=== PATIENT | male | born 1970 | race Caucasian/White ===

== ENCOUNTER → 2018-10-20 13:27 | Outpatient (CLI) | payer OTHER, SELFPAY | PROVIDERS: PCP Internal Medicine; Visit Provider Family Medicine | DX: S41.001A Unspecified open wound of right shoulder, initial encounter (principal); E11.622 Type 2 diabetes mellitus with other skin ulcer | CPT/HCPCS: 11042; 99203; 99213 ==

== ENCOUNTER → 2018-10-28 08:54 | Outpatient (CLI) | payer OTHER, SELFPAY | PROVIDERS: PCP Internal Medicine; Visit Provider Family Medicine | DX: S41.001A Unspecified open wound of right shoulder, initial encounter (principal); E11.622 Type 2 diabetes mellitus with other skin ulcer | CPT/HCPCS: 99212; 99213 ==

== ENCOUNTER → 2018-11-04 08:44 | Outpatient (CLI) | payer OTHER, SELFPAY | PROVIDERS: PCP Internal Medicine; Visit Provider Family Medicine | DX: S41.002A Unspecified open wound of left shoulder, initial encounter (principal); E11.622 Type 2 diabetes mellitus with other skin ulcer | CPT/HCPCS: 99212; 99213 ==

== ENCOUNTER → 2018-11-11 08:40 | Outpatient (CLI) | payer OTHER, SELFPAY | PROVIDERS: PCP Internal Medicine; Visit Provider Family Medicine | DX: E11.622 Type 2 diabetes mellitus with other skin ulcer (principal); E11.649 Type 2 diabetes mellitus with hypoglycemia without coma; S41.001D Unspecified open wound of right shoulder, subsequent encounter | CPT/HCPCS: 99212 ==

== ENCOUNTER 2023-06-12 16:00 | Emergency (ER) | payer OTHER, SELFPAY ==
[2023-06-12 16:05] VITALS: BP 158/78; PULSE 79; RESP 18; TEMP 36.2; O2SAT 100; BMI 29.5
--- NOTE | 2023-06-12 16:44 | DI.US.S_ITS ---
PROCEDURE: US PERIPH VENOUS LOW EXTREM LT INDICATIONS: L leg swelling TECHNIQUE: Real-time imaging, as well as color and pulse Doppler interrogation, were performed of the lower extremity deep veins from the inguinal ligament to the popliteal fossa, with documentation of the visualized calf veins. COMPARISON: None. FINDINGS: The common femoral, femoral, popliteal, and the visualized calf veins are normally compressible, and free of intraluminal thrombus. Color and pulse Doppler demonstrate normal phasic intraluminal flow. There is normal augmentation response to distal compression maneuver. Additionally, there is a large soft tissue fluid collection in the left mid calf measuring 11.2 x 4.4 x 1.6 cm. IMPRESSION: No evidence of deep venous thrombosis, left lower extremity. Complex calf soft tissue fluid collection possibly reflects resolving hematoma Approved by: Ryan Galloway M.D. on 06/12/2023 at 17:26
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
[2023-06-12 18:42] VITALS: BP 138/70; PULSE 71; TEMP 36.8; O2SAT 99
== END 2023-06-12 18:45 | disposition home or self-care (01) ==
PROVIDERS: Emergency Provider Student in an Organized Health Care Education/Training Program; PCP Internal Medicine
DX: M79.89 Other specified soft tissue disorders (principal); S80.12XA Contusion of left lower leg, initial encounter
CPT/HCPCS: 93971; 99281; 99283

== ENCOUNTER 2023-10-01 17:59 | Emergency (ER) | payer OTHER, SELFPAY ==
[2023-10-01 18:08] VITALS: BP 201/99; PULSE 81; RESP 14; TEMP 36.5; O2SAT 98; BMI 29.1
--- NOTE | 2023-10-01 20:12 | ED.LOWEXIN ---
HPI - Extremity Injury (Lower) General Chief Complaint: Extremity Injury, Lower Stated Complaint: foot injury Time Seen by Provider: 10/01/23 19:52 Source: patient Mode of arrival: Ambulatory History of Present Illness HPI Narrative: 53-year-old male with history of insulin-dependent diabetes presents for evaluation of wound to his left 4th and 5th toes. Patient states that yesterday he noticed a blister after working and attributed it to his footwear. This evening after using the restroom he looked down at his feet and noticed that the skin of his toes had completely degloved, leaving the toes bare. He presented to the ER for evaluation. Reports neuropathy in both his feet and has some sensation, but decreased from normal Related Data Previous Rx's Medication Instructions Recorded cephalexin 500 mg capsule 500 mg PO QID #40 caps 10/01/23 doxycycline hyclate 100 mg capsule 100 mg PO BID #20 caps 10/01/23 Allergies Allergy/AdvReac Type Severity Reaction Status Date / Time No Known Drug Allergies Allergy Verified 06/12/23 16:05 Patient History Social History Smoking Status: Never smoker Smoking Status: Never smoker alcohol intake frequency: holidays/special occasions only Substance Use Type: does not use Exam Initial Vital Signs Initial Vital Signs: Vital Signs Temperature 97.7 F 10/01/23 18:08 Pulse Rate 81 10/01/23 18:08 Respiratory Rate 14 10/01/23 18:08 Blood Pressure 201/99 H 10/01/23 18:08 Pulse Oximetry 98 10/01/23 18:08 Oxygen Delivery Method Room Air 10/01/23 18:08 Const: Awake, alert, no acute distress, nontoxic appearing Skin: Skin of 4th and 5th toes degloved from base of digit to tip of digit, no surrounding cellulitis or erythema Neuro: AO x3, CN II-XII grossly intact, moves all extremities Course Orders Ordered: ED Orders 10/01/23 20:12 XR toe LT min 2V Stat Discontinued Medications Cephalexin HCl (Cephalexin 250 Mg Capsule) 1,000 mg PO NOW ONE Stop: 10/01/23 22:20 Last Admin: 10/01/23 22:30 Dose: 1,000 mg Documented By: Doxycycline Hyclate (Doxycycline Hyclate 100 Mg Tablet) 100 mg PO NOW ONE Stop: 10/01/23 22:18 Last Admin: 10/01/23 22:30 Dose: 100 mg Documented By: Hydromorphone HCl (Hydromorphone 1 Mg Inj) 1 mg IV NOW ONE Stop: 10/01/23 20:30 Last Admin: 10/01/23 20:35 Dose: Not Given Documented By: Vital Signs Vital signs: Vital Signs - 8 hr 10/01/23 22:34 Temperature 99.1 F Pulse Rate 85 Respiratory Rate 16 Blood Pressure 135/87 Pulse Oximetry 95 Oxygen Delivery Method Room Air MDM - Extremity Injury (Lower) Imaging Data Extremity x-ray #1: Radiologist's Impression: PROCEDURE: XR TOE LT MIN 2V INDICATIONS: diabetic wound TECHNIQUE: 3 views of the left 4th and 5th toe(s) acquired. COMPARISON: None. FINDINGS: Bones: No definite fractures or dislocations. No suspicious osseous erosions. No suspicious bony lesions. Soft tissues: No suspicious soft tissue densities. There is soft tissue swelling of the distal left 4th and 5th toes more pronounced over the 5th toe. IMPRESSION: Left 4th and 5th toes without definite fracture or osseous erosions. Overlying soft tissue swelling. Although no bony erosions are identified, radiographic evaluation is relatively insensitive in the acute phase of osteomyelitis and may not demonstrate radiographic findings for approximately 15 days. If acute osteomyelitis is of clinical concern, three-phase nuclear medicine regional bone scan or MRI is recommended. Dictated by: Thierry Nash M.D. on 10/01/2023 at 21:23 Approved by: Thierry Nash M.D. on 10/01/2023 at 21:25 [facility] Narrative Medical decision making narrative: Degloving skin of left 4th and 5th toes in patient with diabetes. Area cleansed with Betadine and normal saline, D gloves skin removed from around the toes. Xeroform gauze and dry dressing placed around toes. Since patient was a diabetic with neuropathy plan to treat with antibiotics. In addition a wound care referral was sent so that the patient may have continued wound follow up. X-ray imaging shows soft tissue swelling without gas or other concerning findings. Discharge Plan Departure Patient Disposition: Home Clinical Impression: Diabetic toe ulcer Instructions: DI for Diabetic Foot Ulcer Activity Restrictions/Additional Instructions: Keep your toe clean and dry. Change dressings daily. A referral to wound care has been placed, please await a call to schedule an appointment. Antibiotics have been sent to the [facility] in [place]. Prescriptions: New cephalexin 500 mg capsule 500 mg PO QID Qty: 40 0RF doxycycline hyclate 100 mg capsule 100 mg PO BID Qty: 20 0RF Referrals: ProviderAndrea [Primary Care Provider] - Stand Alone Forms: Patient Portal/API
--- NOTE | 2023-10-01 20:25 | PC.NURSE ---
Pt has degloving of skin to left fourth toe. Pt reports that is started out as a blister from walking.
--- NOTE | 2023-10-01 20:27 | PC.NURSE ---
Left foot soaking in betadine/NS solution per MD request.
[2023-10-01] MEDS: DOXYCYCLINE HYCLATE 100 MG TABLET PO (22:30)
[2023-10-01] MEDS: cephALEXin 250 MG CAPSULE 1000 MG PO (22:30)
[2023-10-01 22:34] VITALS: BP 135/87; PULSE 85; RESP 16; TEMP 37.3; O2SAT 95
== END 2023-10-01 22:36 | disposition home or self-care (01) ==
PROVIDERS: Emergency Provider Emergency Medicine
DX: E10.621 Type 1 diabetes mellitus with foot ulcer (principal); L97.529 Non-pressure chronic ulcer of other part of left foot with unspecified severity
CPT/HCPCS: 73660; 99283

== ENCOUNTER 2023-10-04 15:46 | Inpatient (IN) | payer OTHER, SELFPAY ==
[2023-10-04] VITALS (12 sets, daily range): BP systolic 171–207; BP diastolic 76–93; PULSE 72–78; RESP 16–17; TEMP 36.6–37.7; O2SAT 95–99; BMI 29.1
--- NOTE | 2023-10-04 15:57 | ED.LOWEXIN ---
HPI - Extremity Injury (Lower) General Chief Complaint: Wound/Laceration Stated Complaint: lt foot/toes black Time Seen by Provider: 10/04/23 15:50 History of Present Illness HPI Narrative: 53-year-old male with history of hypertension, insulin-dependent diabetes presents for blackening of his left 4th and 5th toes. I saw patient on 10/01/2023 for blistering on his toes. At that time patient had blisters on his toes that suddenly popped and desquamated. At that time x-ray imaging was negative for acute findings, his wounds were cleansed and wrapped in clean dressings. Patient was discharged on Keflex and doxycycline. Patient states that he has been compliant with his medications as prescribed. This afternoon when he and his went to go change his dressings he noticed that his toes were black. He has neuropathy in his feet and denies any significant pain. Related Data Previous Rx's Medication Instructions Recorded cephalexin 500 mg capsule 500 mg PO QID #40 caps 10/01/23 doxycycline hyclate 100 mg capsule 100 mg PO BID #20 caps 10/01/23 Allergies Allergy/AdvReac Type Severity Reaction Status Date / Time meperidine [From Demerol] Allergy Verified 10/04/23 16:04 Review of Systems Review of Systems Narrative: See HPI Patient History Social History Smoking Status: Never smoker Smoking Status: Never smoker alcohol intake frequency: holidays/special occasions only Substance Use Type: does not use Exam Initial Vital Signs Initial Vital Signs: Vital Signs Temperature 98 F 10/04/23 15:56 Pulse Rate 72 10/04/23 15:56 Respiratory Rate 17 10/04/23 15:56 Blood Pressure 177/79 H 10/04/23 15:56 Pulse Oximetry 98 10/04/23 15:56 Oxygen Delivery Method Room Air 10/04/23 15:56 Const: Awake, alert, no acute distress, nontoxic appearing Cardiac: regular rate, regular rhythm RESP: unlabored, clear bilaterally, no wheezing MSK: Strong DP pulses bilaterally, decreased sensation bilateral feet Skin: Blackened 4th and 5th toes (dry, no eschar, no foul odor), erythema 2nd and 3rd toes, warmth top of left foot to ankle Neuro: AO x3, CN II-XII grossly intact, moves all extremities Course Orders Ordered: ED Orders 10/04/23 16:01 XR foot LT min 3V Stat 10/04/23 16:26 CBC Auto Diff [Complete Blood Count AUTO DIFF] Stat CMP [Comprehensive Metabolic Panel] Stat Procalcitonin Stat Vancomycin HCl/Dextrose (Vancomycin) 2,000 mg in 400 mls @ 200 mls/hr IV NOW ONE Stop: 10/04/23 17:58 Last Admin: 10/04/23 17:35 Dose: 200 mls/hr Documented By: KELLY Discontinued Medications Cefepime HCl 2 gm/ Sodium (Chloride) 100 mls @ 200 mls/hr IV NOW ONE Stop: 10/04/23 15:59 Last Infusion: 10/04/23 17:33 Dose: Infused Documented By: Admin: 10/04/23 16:56 Dose: 200 mls/hr Documented By: KELLY Vital Signs Vital signs: Vital Signs - 8 hr 10/04/23 15:56 Temperature 98 F Pulse Rate 72 Respiratory Rate 17 Blood Pressure 177/79 H Pulse Oximetry 98 Oxygen Delivery Method Room Air MDM - Extremity Injury (Lower) Differential Diagnosis Differential diagnosis: Likely ankle sprain and strain, puncture wound of foot and fracture of toe Lab Data 10/04/23 16:26 10/04/23 16:26 Labs: Lab Results 10/04/23 Range/Units 16:26 WBC 7.2 (4.5-11.0) X10^3/uL RBC 4.31 L (4.5-5.9) X10^6/uL Hgb 12.3 L (13.5-17.5) g/dL Hct 35.8 L (41-53) % MCV 83.0 (80-100) fL MCH 28.6 (26-34) PG MCHC 34.4 (30-36) % RDW 13.5 (11.6-14.8) % Plt Count 228 (150-400) X10^3/uL Neut % (Auto) 77.3 H (50-75) % Lymph % (Auto) 15.5 L (25-40) % [place] % (Auto) 5.2 (3-14) % Eos % (Auto) 1.5 L (2-4) % Baso % (Auto) 0.5 (0-2) % Neut # (Auto) 5600 (3853-3545) /uL Lymph # (Auto) 1100 (1093-2916) /uL [place] # (Auto) 400 (0-900) /uL Eos # (Auto) 100 (0-450) /uL Baso # (Auto) 0 (0-100) /uL Sodium 135 L (137-145) mmol/L Potassium 4.7 (3.4-5.1) mmol/L Chloride 102 (98-107) mmol/L Carbon Dioxide 27 (22-32) mmol/L BUN 42 H (9-20) mg/dL Creatinine 1.57 H (0.66-1.25) mg/dL Estimated GFR 53 L (>60) mL/min BUN/Creatinine Ratio 26.8 H (6-22) Glucose 448 H (70-100) mg/dL Calcium 8.8 (8.4-10.2) mg/dL Total Bilirubin 0.6 (0.2-1.3) mg/dL AST 21 (17-59) IU/L ALT 20 (<50) IU/L Alkaline Phosphatase 126 (38-126) U/L Total Protein 7.6 (6.3-8.2) g/dL Albumin 4.2 (3.5-5.0) g/dL Globulin 3.4 (1.7-4.1) g/dL Albumin/Globulin Ratio 1.2 (1.0-2.8) Procalcitonin 0.087 (<0.5) ng/mL Imaging Data Extremity x-ray #1: Radiologist's Impression: PROCEDURE: XR FOOT LT MIN 3V INDICATIONS: black 4th and 5th toes TECHNIQUE: 3 views of the foot were acquired. COMPARISON: None. FINDINGS: Bones: No fractures or dislocations. No suspicious bony lesions. No cortical erosions or periosteal reaction. Soft tissues: No tibiotalar joint effusion. Achilles tendon appears normal. IMPRESSION: No acute radiographic abnormality. Approved by: Heather Patel M.D.,Ph.D. on 10/04/2023 at 15:56 MDM Narrative Medical decision making narrative: Rapid worsening of 4th and 5th toes compared to initial presentation on 09/30. Appearances of dry gangrene with blackened, deadened skin. Patient has strong dorsalis pedis pulses and capillary refill is less than 2 seconds in non necrotic toes. Laboratory work, repeat x-rays, IV antibiotics ordered. Laboratory work is reviewed, no leukocytosis, normal procalcitonin. X-ray showed no changes from prior. Patient is receiving vancomycin and cefepime for coverage. Today labs show glucose of 448, patient states his blood glucose is normally much better controlled than that, although his most recent A1c was 9. Picture shared with Dr. Bo of orthopedics, who stated that patient could follow in clinic to discuss removal of the necrotic toes, however if patient needed to stay in the hospital he would see him on an inpatient basis. Based on the rapid spread of the necrosis as well as apparent failure of antibiotic treatment I believe patient would be best kept in the hospital at this time. Patient and in agreement with plan. Discharge Plan Departure Patient Disposition: Admitted As Inpatient Clinical Impression: Hyperglycemia, Gangrene associated with diabetes mellitus Diabetic toe ulcer Qualifiers: Diabetes mellitus type: type 2 Laterality: left Non-pressure ulcer stage: with other severity Qualified Code(s): E11.621 - Type 2 diabetes mellitus with foot ulcer; L97.528 - Non-pressure chronic ulcer of other part of left foot with other specified severity Admit Date/Time: 10/04/23 17:33 Admit Provider: Duncan Tan V
--- NOTE | 2023-10-04 16:01 | DI.RAD.S_ITS ---
PROCEDURE: XR FOOT LT MIN 3V INDICATIONS: black 4th and 5th toes TECHNIQUE: 3 views of the foot were acquired. COMPARISON: None. FINDINGS: Bones: No fractures or dislocations. No suspicious bony lesions. No cortical erosions or periosteal reaction. Soft tissues: No tibiotalar joint effusion. Achilles tendon appears normal. IMPRESSION: No acute radiographic abnormality. Approved by: Heather Patel M.D.,Ph.D. on 10/04/2023 at 15:56
[2023-10-04 16:38] LABS: Add Manual Diff / Slide Review NO; Basophils Absolute Auto 0 /uL (0-100); Basophils Percent Auto 0.5 % (0-2); Eosinophils Absolute Auto 100 /uL (0-450); Eosinophils Percent Auto 1.5 % (2-4); Hematocrit 35.8 % (41-53); Hemoglobin 12.3 g/dL (13.5-17.5); Lymphocytes Absolute Auto 1100 /uL (1100-4500); Lymphocytes Percent Auto 15.5 % (25-40); Mean Corpuscular HGB Conc 34.4 % (30-36); Mean Corpuscular Hemoglobin 28.6 PG (26-34); Monocytes Absolute Auto 400 /uL (0-900); Monocytes Percent Auto 5.2 % (3-14); Neutrophils Absolute Auto 5600 /uL (1500-7000); Neutrophils Percent Auto 77.3 % (50-75); Platelet Count 228 X10^3/uL (150-400); Red Blood Cell Count 4.31 X10^6/uL (4.5-5.9); Red Cell Distribution Width 13.5 % (11.6-14.8); White Blood Cell Count 7.2 X10^3/uL (4.5-11.0)
[2023-10-04 16:48] LABS: Alanine Aminotransferase 20 IU/L (<50); Albumin 4.2 g/dL (3.5-5.0); Albumin Globulin Ratio 1.2 (1.0-2.8); Alkaline Phosphatase 126 U/L (38-126); Aspartate Aminotransferase 21 IU/L (17-59); BUN Creatinine Ratio 26.8 (6-22); Bilirubin Total 0.6 mg/dL (0.2-1.3); Blood Urea Nitrogen 42 mg/dL (9-20); Calcium 8.8 mg/dL (8.4-10.2); Carbon Dioxide 27 mmol/L (22-32); Chloride 102 mmol/L (98-107); Estimated Glomerular Filt Rate 53 mL/min (>60); Globulin 3.4 g/dL (1.7-4.1); Glucose 448 mg/dL (70-100); HEMOLYSIS < 15 (0-50); Potassium 4.7 mmol/L (3.4-5.1); Sodium 135 mmol/L (137-145); Total Protein 7.6 g/dL (6.3-8.2)
[2023-10-04] MEDS: CEFEPIME 2 GM in SODIUM CHLORIDE 0.9% 100 ML IV ×2 (16:56→19:10)
[2023-10-04 17:05] LABS: Procalcitonin 0.087 ng/mL (<0.5)
[2023-10-04] MEDS: VANCOMYCIN 2,000 MG/400 ML PIGGYBACK 200 MG IV (17:35)
[2023-10-04 17:51] LABS: C-Reactive Protein Quant 1.9 mg/dL (<1.0)
[2023-10-04 18:00] LABS: Erythrocyte Sedimentation Rate 58 MM/HR (0-15)
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
[2023-10-04] MEDS: SODIUM CHLORIDE 0.9% 1,000 ML 125 ML IV (19:09)
[2023-10-04] MEDS: INSULIN LISPRO 100 UNIT/ML 3ML VIAL SUBCUT ×2 (19:10→20:27)
--- NOTE | 2023-10-04 19:39 | PC.NURSE ---
Rec'd pt from ED at 1824; pt amb to bed; awake and alert; iv to left arm w/ NS@125ml/hr; vanc completed and cefipime ivpb started; accucheck 444; insulin lispro 8 units subq given; at bedside; left 4th and 5th toes blackened; denies pain to toes; Dr Tan notified of htn and he will order b/p med; report given to oncoming shift
[2023-10-04] MEDS: INSULIN GLARGINE 100 UNIT/ML 3ML PEN 20 UNIT SUBCUT (20:27)
[2023-10-04] MEDS: AMLODIPINE 5 MG TABLET PO (20:29)
[2023-10-05 02:50] VITALS: BP 125/70; PULSE 68; RESP 16; TEMP 36.4; O2SAT 96
[2023-10-05] MEDS: SODIUM CHLORIDE 0.9% 1,000 ML 125 ML IV (03:54)
[2023-10-05 05:37] LABS: Add Manual Diff / Slide Review NO; Basophils Absolute Auto 0 /uL (0-100); Basophils Percent Auto 0.5 % (0-2); Eosinophils Absolute Auto 100 /uL (0-450); Eosinophils Percent Auto 2.4 % (2-4); Hematocrit 32.1 % (41-53); Hemoglobin 11.4 g/dL (13.5-17.5); Lymphocytes Absolute Auto 1200 /uL (1100-4500); Lymphocytes Percent Auto 20.1 % (25-40); Mean Corpuscular HGB Conc 35.6 % (30-36); Mean Corpuscular Hemoglobin 29.1 PG (26-34); Mean Corpuscular Volume 81.8 fL (80-100); Monocytes Absolute Auto 400 /uL (0-900); Monocytes Percent Auto 6.3 % (3-14); Neutrophils Absolute Auto 4200 /uL (1500-7000); Neutrophils Percent Auto 70.7 % (50-75); Platelet Count 219 X10^3/uL (150-400); Red Blood Cell Count 3.93 X10^6/uL (4.5-5.9); Red Cell Distribution Width 13.6 % (11.6-14.8); White Blood Cell Count 5.9 X10^3/uL (4.5-11.0)
[2023-10-05 05:51] LABS: BUN Creatinine Ratio 24.4 (6-22); Blood Urea Nitrogen 31 mg/dL (9-20); Calcium 8.4 mg/dL (8.4-10.2); Carbon Dioxide 25 mmol/L (22-32); Chloride 109 mmol/L (98-107); Estimated Glomerular Filt Rate > 60 mL/min (>60); Glucose 263 mg/dL (70-100); HEMOLYSIS < 15 (0-50); Potassium 4.3 mmol/L (3.4-5.1); Sodium 136 mmol/L (137-145)
[2023-10-05] MEDS: CEFEPIME 2 GM in SODIUM CHLORIDE 0.9% 100 ML IV ×2 (06:06→17:41)
[2023-10-05] MEDS: VANCOMYCIN 1,250 MG/250 ML PIGGYBACK 250 MG IV ×2 (07:58→18:24)
[2023-10-05] MEDS: INSULIN LISPRO 100 UNIT/ML 3ML VIAL SUBCUT ×4 (08:09→20:51)
[2023-10-05] MEDS: AMLODIPINE 5 MG TABLET PO (08:14)
--- NOTE | 2023-10-05 11:14 | PT-IP ANOTE ---
Pt discussed in rounds. PT received order and noted order for off-loading shoe. PT noted toe discoloration and drainage. PT looked for forefoot off-loading shoe. Pt needs size large and there are none currently available on acute floor or in ER and materials/purchasing is locked. PT left message for materials/purchasing. Given toe wounds, will initiate NWB LLE until forefoot off-loading shoe available if it becomes available. Thank you for this consult.
--- NOTE | 2023-10-05 11:16 | PM.HP.1 ---
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 He has diabetes and has had challenges related to his vocational responsibilities with his blood glucose management due to concerns of becoming hypoglycemic during his shifts. He has developed necrosis of his 4th and 5th toes on his right foot as well as blistering of his 3rd toe. He does not report significant pain associated with it. He reports intact sensation proximal to the affected regions [facility] Medical History (Updated 10/04/23 @ 18:57 by Duncan Tan MD) Elevated blood pressure reading without diagnosis of hypertension MALVIN (acute kidney injury) Type 1 diabetes mellitus with polyneuropathy Cellulitis of left foot Social History household members: spouse and children Smoking Status: Never smoker Meds Home Medications and Allergies Home Medications Medication Instructions Recorded Confirmed Type cephalexin 500 mg capsule 500 mg PO QID #40 caps 10/01/23 10/04/23 Rx doxycycline hyclate 100 mg capsule 100 mg PO BID #20 caps 10/01/23 10/04/23 Rx Allergies Allergy/AdvReac Type Severity Reaction Status Date / Time meperidine [From Demerol] Allergy Verified 10/04/23 16:04 Review of Systems Review of Systems ROS: Yes All systems reviewed with the patient and are negative except as otherwise documented Exam Vital Signs (past 8 hours): Oxygen Delivery Method Room Air Oxygen Flow Rate 0 Narrative Exam Narrative: Right lower extremity examination demonstrates full-thickness necrosis of the 4th and 5th toes from the proximal interphalangeal joint extending distally to the tip of both toes. There is also blistering of the 3rd toe with no significant eschar in that area at this point in time. Based on photograph sent to me by the emergency department yesterday it appears that there has been progression even in the last 24 hours. He reports intact sensation just proximal to the area of involvement on both toes Const General: cooperative Orientation: alert and awake HENMT Head: normal to inspection Ears: hearing grossly normal bilaterally Eyes General: appearance normal, both eyes and all related structures Neck Neck: normal visual inspection Resp Effort & Inspection: normal respiratory effort and able to speak in complete sentences Cardio Pulses: other (peripheral pulses present) Skin Lesions: no lesions Rashes: no rashes Neuro General: patient alert, patient awake and moves all extremities Psych Appearance: grossly normal Objective Labs 10/05/23 05:00 10/05/23 05:00 Labs: Laboratory Results - last 24 hr 10/04/23 10/04/23 10/05/23 16:26 16:29 05:00 WBC 7.2 5.9 RBC 4.31 L 3.93 L Hgb 12.3 L 11.4 L Hct 35.8 L 32.1 L MCV 83.0 81.8 MCH 28.6 29.1 MCHC 34.4 35.6 RDW 13.5 13.6 Plt Count 228 219 Neut % (Auto) 77.3 H 70.7 Lymph % (Auto) 15.5 L 20.1 L [place] % (Auto) 5.2 6.3 Eos % (Auto) 1.5 L 2.4 Baso % (Auto) 0.5 0.5 Neut # (Auto) 5600 4200 Lymph # (Auto) 1100 1200 [place] # (Auto) 400 400 Eos # (Auto) 100 100 Baso # (Auto) 0 0 ESR 58 H Sodium 135 L 136 L Potassium 4.7 4.3 Chloride 102 109 H Carbon Dioxide 27 25 BUN 42 H 31 H Creatinine 1.57 H 1.27 H Estimated GFR 53 L > 60 BUN/Creatinine Ratio 26.8 H 24.4 H Glucose 448 H 263 H D Calcium 8.8 8.4 Total Bilirubin 0.6 AST 21 ALT 20 Alkaline Phosphatase 126 C-Reactive Protein 1.9 H Total Protein 7.6 Albumin 4.2 Globulin 3.4 Albumin/Globulin Ratio 1.2 Procalcitonin 0.087 Assessment & Plan Assessment and plan (1) Gangrene associated with diabetes mellitus: Problem details: The patient is admitted for IV antibiotics and close monitoring and evaluation. Treat with IV vancomycin and cefepime. Orthopedics has recommended outpatient consultation but consider inpatient consultation pending clinical course. Status: Acute Plan With regards to the patient's left toes, these will need to be amputated. I would like to monitor this over the course of ideally a few weeks at a minimum in order to allow the necrosis to demarcate the margins of where he has intact blood flow in order to allow for wound closure of his eventual amputation through an area that has intact vascularity. I am concerned that he may need to have his 3rd toe amputated in addition to the 4th and 5th. At a minimum he will need a disarticulation through the metatarsophalangeal joint of the 4th and 5th digits. I have recommended an evaluation from a vascular surgeon in the outpatient setting to see if there is any macrovascular disease in addition to his obvious microvascular disease. He does have a bounding DP pulse on the affected foot however given the extent of his necrosis blood flow is obviously being disrupted in his foot in some fashion. I will begin by ordering PRANEETH indexes today and recommend outpatient follow up with myself in addition to outpatient follow up with the vascular surgeon. He is being prescribed antibiotics by the primary medical team and these can be continued in the outpatient setting to guard against superimposed infection while the area of necrosis is allowed to declare itself.
[2023-10-05 12:09] VITALS: BP 130/80; PULSE 88; RESP 17; TEMP 36.8; O2SAT 96
--- NOTE | 2023-10-05 12:44 | P.PN_ITS ---
Subjective Subjective Date Patient Seen: 10/05/23 Time Patient Seen: 07:55 Interval history: The patient slept well overnight. He has no complaints. He has also noticed that his middle toe has some redness and mild blistering on it since prior to admission no change in the 4th and 5th toes. Exam Vital Signs (past 8 hours): - 10/05/23 12:09 Temperature 98.3 F Pulse Rate 88 Respiratory Rate 17 Blood Pressure 130/80 Pulse Oximetry 96 Oxygen Flow Rate 0 Oxygen Delivery Method Room Air Oxygen Flow Rate 0 Narrative Exam Narrative: GENERAL: This is a well-nourished, well-developed patient, in no apparent distress. EYES: Pupils equal round and reactive. Extraocular motions intact. ENT: Mucous membranes pink and moist. NECK: Supple, nontender, no meningeal signs. CARDIOVASCULAR: Regular rate and rhythm without murmurs, gallops, or rubs. RESPIRATORY: Clear to auscultation. GASTROINTESTINAL: Abdomen soft, non-tender, nondistended. EXTREMITIES: No clubbing, cyanosis, or edema. NEUROLOGIC: Alert, oriented, speech fluent, full upper and lower motor strength, no focal deficits evident. DERMATOLOGIC: Left 4th and 5th toes black and and necrotic to base, with erythema extending 2 cm into the proximal foot, mildly tender to palpation and manipulation. The 3rd toe has mild erythema and mild superficial blistering evident. FEET: Bilateral foot exam: Diminished sensation at toe level to monofilament touch. Nails with thickening and/or discoloration. VASCULAR: 2+ DP/PT pulses bilateral foot vascular exam with normal capillary refill. Objective Labs 10/05/23 05:00 10/05/23 05:00 Labs: Laboratory Results - last 24 hr 10/04/23 10/04/23 10/05/23 16:26 16:29 05:00 WBC 7.2 5.9 RBC 4.31 L 3.93 L Hgb 12.3 L 11.4 L Hct 35.8 L 32.1 L MCV 83.0 81.8 MCH 28.6 29.1 MCHC 34.4 35.6 RDW 13.5 13.6 Plt Count 228 219 Neut % (Auto) 77.3 H 70.7 Lymph % (Auto) 15.5 L 20.1 L [place] % (Auto) 5.2 6.3 Eos % (Auto) 1.5 L 2.4 Baso % (Auto) 0.5 0.5 Neut # (Auto) 5600 4200 Lymph # (Auto) 1100 1200 [place] # (Auto) 400 400 Eos # (Auto) 100 100 Baso # (Auto) 0 0 ESR 58 H Sodium 135 L 136 L Potassium 4.7 4.3 Chloride 102 109 H Carbon Dioxide 27 25 BUN 42 H 31 H Creatinine 1.57 H 1.27 H Estimated GFR 53 L > 60 BUN/Creatinine Ratio 26.8 H 24.4 H Glucose 448 H 263 H D Calcium 8.8 8.4 Total Bilirubin 0.6 AST 21 ALT 20 Alkaline Phosphatase 126 C-Reactive Protein 1.9 H Total Protein 7.6 Albumin 4.2 Globulin 3.4 Albumin/Globulin Ratio 1.2 Procalcitonin 0.087 [facility] Medical History (Updated 10/04/23 @ 18:57 by Duncan Tan MD) Elevated blood pressure reading without diagnosis of hypertension MALVIN (acute kidney injury) Type 1 diabetes mellitus with polyneuropathy Cellulitis of left foot Social History household members: spouse and children Smoking Status: Never smoker Assessment & Plan Assessment & Plan narrative: (1) Gangrene associated with diabetes mellitus: Continue IV antibiotics and close monitoring and evaluation. Orthopedic consultation appreciated. Treat with IV vancomycin and cefepime. Orthopedics has recommended outpatient management but consider inpatient intervention pending clinical course. (2) Diabetic toe ulcer (3) Cellulitis of left foot: Stable overnight. Continue IV antibiotics. Monitor 3rd toe which is at risk for loss in addition to the 4th and 5th toes (4) Type 1 diabetes mellitus with polyneuropathy: Continue Lantus 20 units nightly with sliding scale coverage. He states baseline hemoglobin A1cs are in the 90% range. (5) Hyperglycemia (6) MALVIN (acute kidney injury): Improved with overnight hydration. Monitor. Possible underlying nephropathy. (7) Elevated blood pressure reading without diagnosis of hypertension: Inadequate control. Started amlodipine 5 mg daily 10/04/2023. Defer starting KATHY/ARB given acute kidney injury, though this may be considered on an outpatient basis. -continue IV antibiotics -transition to oral antibiotics at discharge -PRANEETH per Orthopedics -possible inpatient intervention pending clinical course Case reviewed in team rounds with Orthopedics, physical therapy, nursing and case management PROFEE Charge codes Subsequent inpatient/observation care: [id number]
--- NOTE | 2023-10-05 13:47 | PT.IIE ---
Addendum entered and electronically signed by Janay Izquierdo PT 10/05/23 13:49: PT provides direct superv during SPT evaluation Original Note: Current Diagnoses Type 1 diabetes mellitus with diabetic polyneuropathy (10/04/23) Type 2 diabetes mellitus with diabetic peripheral angiopathy with gangrene (10/04/23) Type 2 diabetes mellitus with foot ulcer (10/04/23) Cellulitis of left lower limb (10/04/23) Non-pressure chronic ulcer of other part of unspecified foot with unspecified severity (10/04/23) Non-pressure chronic ulcer of other part of left foot with other specified severity (10/04/23) Acute kidney failure, unspecified (10/04/23) Elevated blood-pressure reading, without diagnosis of hypertension (10/04/23) Hyperglycemia, unspecified (10/04/23) Medical History (Last Updated 10/04/23 @ 18:56 by Duncan Tan MD) MALVIN (acute kidney injury) Cellulitis of left foot Elevated blood pressure reading without diagnosis of hypertension Type 1 diabetes mellitus with polyneuropathy Physical Therapy Inpatient Evaluation/Re-Eval M1 PT/OT-IP Prior Functional Status Start: 10/05/23 12:53 Freq: NEEDED Status: Active Protocol: Document 10/05/23 12:10 RODOLFO (Rec: 10/05/23 13:46 RODOLFO [id number]) Medical Review Prior Functional Status Medical History Reviewed Yes Communication WNL Mobility and Gait I with all mobility and gait Activities of Daily Living and IADL's I with all ADL's Social History Household Members spouse Living Arrangements House Number of Floors (Floors) Two Floors Number of Stairs To Enter/Railing? 5 with split railing to enter 13 to second floor, when asked about getting to bed room and more about steps, pt states, it won't be an issue. 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 M2 PT-IP Current Condition Start: 10/05/23 12:53 Freq: NEEDED Status: Active Protocol: Document 10/05/23 12:10 RODOLFO (Rec: 10/05/23 13:46 RODOLFO [id number]) Physical Therapy Current Condition Current Condition Evaluation Date 10/05/23 Treatment Diagnosis Diabetic foot wounds on L LE M3 PT-IP Subjective Start: 10/05/23 12:53 Freq: NEEDED Status: Active Protocol: Document 10/05/23 12:10 JG (Rec: 10/05/23 13:46 J [id number]) Subjective Physical Therapy Visit Type Type Initial Evaluation Visit Start Time 12:10 Visit Stop Time 12:55 Number of DRY JANITOR Visits 0 Physical Therapy Visit Comments Patient Comments Pt states that he wants the toe surgery now rather then in a few weeks. M4 PT-IP Mobility and Gait Start: 10/05/23 12:53 Freq: NEEDED Status: Active Protocol: Document 10/05/23 12:10 JG (Rec: 10/05/23 13:46 J [id number]) PT-Bed Mobility Assessment Rolling Level of Assist Independent Supine to Sit Supine to Sit Independent Sit to Supine Sit to Supine Independent Scooting Scooting to Edge of Bed Independent Scooting Up and Down in Bed Independent PT-Transfer Assessment Sit to and From Stand Sit to and from Stand Independent,Standby Assistance ,Use of Upper Extremities Equipment Transfer Assistive Device Gait Belt,Front Wheeled Walker Orthotic/Prosthetic Devices or Brace: No Transfers Transfer Destination Bed Transfer Technique Ambulation/knee scooter Transfer Ability Level of Assist Independent,Standby Assistance Comments Mobility Comments Pt was I with bed moblity and I to SBA for transfers. Pt was impuslive and did not wait for PT instructions before moving. To sit, he falls back onto bed with arms extended rather than stepping back. Pt used mobility scooter to ambulate from room to stairs. Gait Assessment Gait Gait Assistance Required: Standby Assistance Distance (Feet) 150 Able to Maintain Weight Bearing Status Yes During Gait Assistive Devices Assistive Device Gait Belt,Front Wheeled Walker Orthotic/Prosthetic Devices or Brace: No Factors Limiting Gait Function Factors Limiting Gait Function Poor Balance,Poor Safety Awareness Comments Gait Comments Pt utilized FWW in room for NWB gait x30' and knee scooter for mobility to steps, 150'x2 , he tends to keep left leg rigid and extended with hop gait with FWW Stair Climbing Assessment Evaluation Level of Assist On Stairs Contact Guard Assistance, Minimal Assistance,1 Person Assistance Devices Stair Climbing Assistive Devices Left Railing,Right Railing Technique/Endurance Stair Climbing Direction Ascend and Descend Stair Climbing Technique Step to Step Number of Steps Climbed 3 Query Text: Stair Climbing Set # Repetitions (reps) 1 Comments Stair Climbing Comments Pt has 3 steps entering the house with R railing and 2 steps with B railing. Pt was encouraged to mimic situation of home set-up. Pt was impulsive with climbing stairs and almost lost his balance on the top step and required min A to steady. His left foot then touches the ground, sliding heel along the floor. PT-Balance Assessment Sitting Balance and Reactions Static Sitting Balance Ability Normal Dynamic Sitting Balance Ability Normal Standing Balance and Reactions Static Standing Balance Ability Good Dynamic Standing Balance Ability Fair Device Used FWW M5 PT-IP Objective Assessments Start: 10/05/23 12:53 Freq: NEEDED Status: Active Protocol: Document 10/05/23 12:10 J (Rec: 10/05/23 13:46 [id number]) Orientation Orientation/Cognition Level of Alertness Alert Orientation Name,Age,Birthday,Month,Date, Year,Day of Week,Place, Situation Language Function Ability No Deficits Noted Safety Awareness Decreased Safety Awareness Memory Description No Deficits Noted Comments Pt had impuslive tendencies and seemed to act without safety awareness during transfer and stair activities. Gross Range of Motion Upper Extremity ROM Assessment Within Functional Limits Lower Extremity ROM Assessment Bilaterally Impaired Impairments Decreased ankle and toe movement Strength Upper Extremity Strength Assessment Within Functional Limits Lower Extremity Strength Assessment Bilaterally Impaired Comments Strength Comments Functional weakness in toes on the left with wounds and appendages with eschar Sensation Assessment Comments Sensation Comments Pt has no pain with wounds and so sensation is not normal in his feet though he states he has normal sensation. M6 PT-IP Treatment Start: 10/05/23 12:53 Freq: NEEDED Status: Active Protocol: Document 10/05/23 12:10 J (Rec: 10/05/23 13:46 [id number]) Physical Therapy Treatment Education Education Provided Precautions,Weight Bearing Status,Safety Other Treatments Other Treatment Performed Ed pt in elevating legs, changing into better foot wear since he states he has always wore the same kind of work boots and he has right foot lateral foot changes and current left toe wounds, importance of thinking about job tasks with use of AD in setting of WB changes given wounds and possible surgery, benefits of stair training, benefits of pt and checking feet each night, recommend victim advocate/ dietitian education M7 PT-IP Assessment and Plan Start: 10/05/23 12:53 Freq: NEEDED Status: Active Protocol: Document 10/05/23 12:10 RODOLFO (Rec: 10/05/23 13:46 JEdmund [id number]) PT Summary Assessment and Plan Potential Rehabilitation Potential Good Status of Condition at Evaluation Evolving Summary Impairments Balance,Coordination,Sensation ,Transfers,Gait,Activity Tolerance Progress Towards Goals Progressing Toward Goals Assessment Summary Pt was in bed finshing lunch upon arrival of PT. Pt avoids answering some of PT's direct questions about PLOF and seems mildly agitated with questioning. Pt seems to downplay imprortance of keeping feet safe when asked about shoe wear, skin checking , job requirements. Pt is impulsive with most actitivies and demonstrates poor safety awarness. Pt presents with right foot changes including blister type areas as 5th lateral metatarsal base and metatarsal phanlangeal joint, some callous type dryness tip of 5th digit and blister type area medial 1st digit. On left foot, pt had dark eschar with drainage dorsal 5th and 4th digits, discoloration and drainage dorsal 3rd digit and blister dorsal 2nd digit and plantar 4th digit. His LLE is mildly edematous and discolored. Pt has 5 steps to enter home and 13 steps to reach 2nd floor of home, however, pt stated that it would not be an issue to get around the home. Pt has a spouse that seems to understand what is occuring with pt, and upon d/c pt will return home with assistance of spouse. Unsure what is planned for pt as far as possible amputation. Will con' t to follow and teach appropriate WB and AD use. Forefoot off-loading shoe that would fit pt is unavailable today. Currently teaching NWB LLE. Goals Transfer Goal Independent,Crutches,Front Wheeled Walker Gait Goal Independent,Crutches,Front Wheel Walker Gait Distance 150 Other Goals Pt will be able to ascend 2 steps using right railing and crutch and 3 steps using B railings or one railing and crutch to allow safe home entry. Days to Meet Goals 5 Frequency of Treatment Frequency Of Treatment Once a Day Treatment Plan Physical Therapy Treatment Plan Bed Mobility Training,Transfer Training,Gait Training, Therapeutic Exercise,Balance Retraining,Discharge Planning, Neuromuscular Re-ed Other Recommendations and Next Treatment Focus on safety awareness and Focus safety precautions. Work on proper STS technique using AD, stair training mimicing home set-up Weight Bearing Status Allowed Weight Bearing Amount (enter % NWB on L LE since no off or #) (%) loading shoe available Recommendations To Nursing Amount of Assist Needed 1 Person Assist Discharge Recommendations PT Discharge Recommendations Home with Assistance Equipment Needed for Home Before FWW, mobility scooter Discharge Transportation Needs at Discharge Private Vehicle
--- NOTE | 2023-10-05 15:31 | CM.DANOTE ---
Brief DCP Assessment note Pt is a 53yo M here following Gangrene associated with diabetes mellitus on his left foot. PCP MEGHANA MITCHELL and Liane Rodrigues AREA REPRESENTATIVE reviewed EMR. Per chart review, pt lives in [place] with spouse and works [place] a [place]. Per PT eval, rec home with assistance and a mobility scooter at mi. Per ortho surgeon, rec surgical removal of some of pt's left toes. Ideally, this amputation would occur in the OP setting. Surgeon recommends vascular surgeon f/u as well. Per hospitalist, pt getting IV abx while ehere but plan is to switch to PO at discharge. Per RN, no obvious CM/DCP needs at this time. Plan: medical POC continues to develop. No obvious CM/DCP needs at this time. CM team will follow closely for changes in IV abx plan/will f/u about mobility scooter for pt. TERRY Fajardo Discharge Planning/Care Management CM Discharge Assessment Start: 10/05/23 15:30 Freq: Status: Active Protocol: Document 10/05/23 15:30 (Rec: 10/05/23 15:31 [id number]) Discharge Planning Assessment Assigned Computer Game Programmer TERRY Guaman DPOA/Assigned Designee Name Adilene spouse Contact Information [phone] Advance Directives? No History Provided By Patient Prior Living Arrangements House Household Members spouse Type of transporation used prior to Drives own vehicle admit Independent with ADL's Yes Is patient alert and oriented? Yes Discharge Plan Home Referrals Initiated None needed Whiteboard Updated in Patient Room with No name and ext. # of Computer Game Programmer Review Status In Process Please Provide Date Initial DC 10/05/23 Assessment Was Performed Next Review Type Continued Stay Review
[2023-10-05 16:34] VITALS: BP 137/78; PULSE 79; RESP 18; TEMP 36.6; O2SAT 97
[2023-10-05 20:00] VITALS: BP 169/91; PULSE 76; RESP 16; TEMP 37.1; O2SAT 98
[2023-10-05] MEDS: INSULIN GLARGINE 100 UNIT/ML 3ML PEN 20 UNIT SUBCUT (20:50)
[2023-10-06] VITALS: BP 161/80; PULSE 67; RESP 15; TEMP 36.4; O2SAT 96
[2023-10-06 04:10] VITALS: BP 140/77; PULSE 72; RESP 17; TEMP 36.4; O2SAT 96
[2023-10-06] MEDS: CEFEPIME 2 GM in SODIUM CHLORIDE 0.9% 100 ML IV (05:57)
[2023-10-06] MEDS: VANCOMYCIN 1,250 MG/250 ML PIGGYBACK 250 MG IV (06:42)
[2023-10-06 08:00] VITALS: BP 166/81; PULSE 72; RESP 16; TEMP 36.4; O2SAT 95
[2023-10-06] MEDS: AMLODIPINE 5 MG TABLET PO (08:42)
[2023-10-06] MEDS: INSULIN LISPRO 100 UNIT/ML 3ML VIAL SUBCUT (11:27)
[2023-10-06 12:00] VITALS: BP 155/77; PULSE 69; RESP 16; TEMP 36.5; O2SAT 96
--- NOTE | 2023-10-06 12:45 | PT.IPTN ---
Addendum entered and electronically signed by Janay Izquierdo PT 10/06/23 12:48: PT provides direct superv during SPT treatment Original Note: Current Diagnoses Type 1 diabetes mellitus with diabetic polyneuropathy (10/04/23) Type 2 diabetes mellitus with diabetic peripheral angiopathy with gangrene (10/04/23) Type 2 diabetes mellitus with foot ulcer (10/04/23) Cellulitis of left lower limb (10/04/23) Non-pressure chronic ulcer of other part of unspecified foot with unspecified severity (10/04/23) Non-pressure chronic ulcer of other part of left foot with other specified severity (10/04/23) Acute kidney failure, unspecified (10/04/23) Elevated blood-pressure reading, without diagnosis of hypertension (10/04/23) Hyperglycemia, unspecified (10/04/23) Physical Therapy Treatment Note M2 PT-IP Current Condition Start: 10/05/23 12:53 Freq: NEEDED Status: Active Protocol: Document 10/05/23 12:10 JG (Rec: 10/05/23 13:46 JEdmund [id number]) Physical Therapy Current Condition Current Condition Evaluation Date 10/05/23 Treatment Diagnosis Diabetic foot wounds on L LE M3 PT-IP Subjective Start: 10/05/23 12:53 Freq: NEEDED Status: Active Protocol: Document 10/06/23 11:10 JG (Rec: 10/06/23 12:34 RODOLFO [id number]) Subjective Physical Therapy Visit Type Type Treatment Note Visit Start Time 11:10 Visit Stop Time 12:10 Number of FUR VAULT ATTENDANT Visits 0 Physical Therapy Visit Comments Patient Comments Pt was agreeable to offloading shoe and was agreeable to PT M4 PT-IP Mobility and Gait Start: 10/05/23 12:53 Freq: NEEDED Status: Active Protocol: Document 10/06/23 11:10 JG (Rec: 10/06/23 12:34 RODOLFO [id number]) PT-Bed Mobility Assessment Supine to Sit Supine to Sit Independent Sit to Supine Sit to Supine Independent Scooting Scooting to Edge of Bed Independent Scooting Up and Down in Bed Independent PT-Transfer Assessment Sit to and From Stand Sit to and from Stand Independent,Standby Assistance ,Use of Upper Extremities Equipment Orthotic/Prosthetic Devices or Brace: No Transfers Transfer Destination Bed Transfer Technique Ambulation Transfer Ability Level of Assist Independent Comments Mobility Comments Pt demonstrates I with L forefoot off loading shoe. Pt educated on step to gait pattern using L foot as lead with slight ER to promote heel contact only and not to tap forefoot onto floor Gait Assessment Gait Gait Assistance Required: Independent Distance (Feet) 150 Able to Maintain Weight Bearing Status Yes During Gait Assistive Devices Orthotic/Prosthetic Devices or Brace: Yes Comments Gait Comments Pt was educated and utilized a step to gait pattern due to L forefoot off loading shoe. Pt performed gait pattern for 150'x2, I after education Stair Climbing Assessment Evaluation Level of Assist On Stairs Independent Devices Stair Climbing Assistive Devices Left Railing,Right Railing Technique/Endurance Stair Climbing Direction Ascend and Descend Stair Climbing Technique Step to Step Number of Steps Climbed 3 Stair Climbing Set # Repetitions (reps) 1 Comments Stair Climbing Comments Ascend right foot first and descend left foot first with use of right rail ascend two steps and B rail for descend PT-Balance Assessment Sitting Balance and Reactions Static Sitting Balance Ability Normal Dynamic Sitting Balance Ability Normal Standing Balance and Reactions Static Standing Balance Ability Good Dynamic Standing Balance Ability Good M5 PT-IP Objective Assessments Start: 10/05/23 12:53 Freq: NEEDED Status: Active Protocol: Document 10/06/23 11:10 JG (Rec: 10/06/23 12:34 [id number]) Orientation Orientation/Cognition Level of Alertness Alert Orientation Name,Birthday Language Function Ability No Deficits Noted Safety Awareness Decreased Safety Awareness Memory Description No Deficits Noted Comments Pt was less impulsive and tended to take recommendations more seriously from PT today. Gross Range of Motion Upper Extremity ROM Assessment Within Functional Limits Lower Extremity ROM Assessment Bilaterally Impaired Impairments Decreased ankle and toe movement Strength Upper Extremity Strength Assessment Within Functional Limits Lower Extremity Strength Assessment Bilaterally Impaired Comments Strength Comments Functional weakness in toes on the left with wounds and appendages with eschar Sensation Assessment Comments Sensation Comments Pt has no pain with wounds and so sensation is not normal in his feet though he states he has normal sensation. M6 PT-IP Treatment Start: 10/05/23 12:53 Freq: NEEDED Status: Active Protocol: Document 10/06/23 11:10 JG (Rec: 10/06/23 12:34 [id number]) Physical Therapy Treatment Education Education Provided Precautions,Weight Bearing Status,Safety Equipment Issued Equipment Type and Company Issued forefoot offloading shoe for left foot Other Treatments Other Treatment Performed Left foot dressed before treatment by laura MJohn PT-IP Assessment and Plan Start: 10/05/23 12:53 Freq: NEEDED Status: Active Protocol: Document 10/06/23 11:10 RODOLFO (Rec: 10/06/23 12:34 RODOLFO [id number]) PT Summary Assessment and Plan Potential Rehabilitation Potential Good Status of Condition at Evaluation Evolving Summary Impairments Balance,Coordination,Sensation ,Transfers,Gait,Activity Tolerance Progress Towards Goals Progressing Toward Goals Assessment Summary Pt was sitting in bed with head elevated upon PT arrival. Pt was educated on forefoot off loading shoe for L LE and how to perform step to gait pattern and proper distribution of weight. Once donned, pt was able to perform all transfers and movement I and follow gait, steppage pattern and weight bearing precautions. Pt and spouse re- educated about importance of keeping foot clean and keeping limited weight on foot throughout the day. Pt was also recommended to look into new work shoes in order to reduce chances of future foot injuries. Pt is recommended for d/c to home with assistance from spouse. Goals met. Frequency of Treatment Frequency Of Treatment Discharge Weight Bearing Status Allowed Weight Bearing Amount (enter % Assume WBAT now that shoe or #) (%) available Recommendations To Nursing Amount of Assist Needed Independent Discharge Recommendations PT Discharge Recommendations Home with Assistance Transportation Needs at Discharge Private Vehicle
--- NOTE | 2023-10-06 13:06 | CM.DPNOTE ---
DCP Note ALLIGATOR SHEAR OPERATOR reviewed EMR. Per hospitalist in morning rounds, anticipate dc later today with f/u from ortho and vascular surgeon. Pt will f/u about plan for his toes in the OP setting. ALLIGATOR SHEAR OPERATOR entered room and introduced self and role. accompanied by sandeee at bedside. PT provided pt with necessary boot. 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 Asked about medical excuse form. ALLIGATOR SHEAR OPERATOR and hospitalist coordinated to document a medical excuse form including his limitations for work. ALLIGATOR SHEAR OPERATOR gave copy to pt. Pt appreciative. Asked about the brand of mobility scooter used at the hospital, ALLIGATOR SHEAR OPERATOR found scooter and reported brand to pt. Pt appreciative. Deny other CM needs. P: anticipate dc home today with spouse support. No other CM needs identified at this time. CM team will follow as needed. TERRY Fajardo
--- NOTE | 2023-10-06 13:36 | P.DS_ITS ---
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 He has diabetes and has had challenges related to his vocational responsibilities with his blood glucose management due to concerns of becoming hypoglycemic during his shifts. He has developed necrosis of his 4th and 5th toes on his right foot as well as blistering of his 3rd toe. He does not report significant pain associated with it. He reports intact sensation proximal to the affected regions Discharge Providers Provider Date of admission: 10/04/23 17:33 Discharge Date: 10/06/23 Primary care physician: Andrea KOWALSKI Provider Consults: 10/05/23 08:31 Consult to Orthopedic Surgery Routine Comment: Consulting Provider: Ryan Bo Reason for consultation: Foot Has provider been notified: Yes 10/05/23 10:38 Consult to Physical Therapy Evaluate & Treat Comment: offloading boot Physician Instructions: Evaluate and Treat Discharge provider: Steven Leroy DO Summary Hospital Course Discharge Diagnosis: (1) Gangrene associated with diabetes mellitus: Continue IV antibiotics and close monitoring and evaluation. Orthopedic consultation appreciated. Treat with IV vancomycin and cefepime. Orthopedics has recommended outpatient management but consider inpatient intervention pending clinical course. (2) Diabetic toe ulcer (3) Cellulitis of left foot: Stable overnight. Continue IV antibiotics. Monitor 3rd toe which is at risk for loss in addition to the 4th and 5th toes (4) Type 1 diabetes mellitus with polyneuropathy: Continue Lantus 20 units nightly with sliding scale coverage. He states baseline hemoglobin A1cs are in the 90% range. (5) Hyperglycemia (6) MALVIN (acute kidney injury): Improved with overnight hydration. Monitor. Possible underlying nephropathy. (7) Elevated blood pressure reading without diagnosis of hypertension: Inadequate control. Started amlodipine 5 mg daily 10/04/2023. Defer starting KATHY/ARB given acute kidney injury, though this may be considered on an outpatient basis. Hospital Course: This is a 53 year old male with DM1, who was admitted with dry gangrene of his left 4th and 5th toes. Orthopedic surgery was consulted, and given cellulitis of the left 3rd toe recommended outpatient oral antibiotic therapy for at least two weeks to try and limit the area of needed amputation. Outpatient vascular surgery referral was also recommended and was ordered upon discharge. He was mildly hypertensive, and outpatient follow up with primary care is recommended for further monitoring and possible initiation of antihypertensives as ideally he would be started on kathy/arb (limited by MALVIN) and may be somewhat elevated due to pain. He had already been sent cephalexin and doxycyline, which should be sufficient therapy at discharge. He was provided with a forefoot offloading boot and provided with a work note. Creatinine improved on repeat testing and was likely due to mild dehydration. Continued management is recommended with outpatient orthopedic surgery. Time Spent with Patient Time spent: Greater than 30 minutes Exam Vital Signs (past 8 hours): - 10/06/23 08:00 10/06/23 12:00 Temperature 97.5 F L 97.7 F Pulse Rate 72 69 Respiratory Rate 16 16 Blood Pressure 166/81 H 155/77 H Pulse Oximetry 95 96 Oxygen Flow Rate 0 0 Oxygen Delivery Method Room Air Oxygen Flow Rate 0 Narrative Exam Narrative: GENERAL: This is a well-nourished, well-developed patient, in no apparent distress. EXTREMITIES: No clubbing, cyanosis, or edema. NEUROLOGIC: Alert, oriented, speech fluent, full upper and lower motor strength, no focal deficits evident. DERMATOLOGIC: Left 4th and 5th toes black and and necrotic to mid toe. The 3rd toe has mild erythema and mild superficial blistering evident. Objective Labs 10/05/23 05:00 10/05/23 05:00 [facility] Medical History (Updated 10/04/23 @ 18:57 by Duncan Tan MD) Elevated blood pressure reading without diagnosis of hypertension MALVIN (acute kidney injury) Type 1 diabetes mellitus with polyneuropathy Cellulitis of left foot Social History household members: spouse Smoking Status: Never smoker Discharge Plan Discharge Plan Patient Disposition: Home Provider Discharge Comment: You were admitted to the hospital with an infection in your left foot. Recommend follow up with orthopedic surgery (please call their clinic number for a follow up appointment) and vascular surgery. I have sent a referral for vascular but this may be more quickly obtained through your primary care provider. Continue oral antibiotics. No other changes to your home insulin is recommended at this time. Discharge orders & Medications Prescriptions: Continued cephalexin 500 mg capsule 500 mg PO QID Qty: 40 0RF doxycycline hyclate 100 mg capsule 100 mg PO BID Qty: 20 0RF Follow up/Referrals: Provider,[place] MEGHANA [Primary Care Provider] - Ryan Bo MD [Physician] - 1 Week Other Ambulatory Orders: Referral to: (Schedule) Timeframe: 1 Week Location: Determined by Patient Ordered By: Steven Leroy Diet/Activity/Treatments Diet: Diet as Tolerated and Carb-consistent/Diabetic Activity: Limit weight bearing on L forefoot, use boot when ambulatory or moving. Visit Report/Discharge Packet Stand Alone Forms: Patient Portal/API, Stroke Signs & Symptoms Discharge Data Primary Care Provider: Andrea Murphy
--- NOTE | 2023-10-06 14:32 | PC.NURSE ---
Discharge Note Patient A&O, VSS, RA, no complaints of pain/discomfort. Discharge packet reviewed with patient, all questions/concerns addressed. PIV discontinued. Patient able to dress self and pack all belongings. Patient accompanied off floor to POV.
== END 2023-10-06 14:15 | disposition home or self-care (01) | DRG 300 ==
LOC: ED 15:52 → AC 17:49
PROVIDERS: Admitting Provider Internal Medicine; Emergency Provider Emergency Medicine; Referring Provider Orthopaedic Surgery; Visit Provider Internal Medicine
DX: E10.52 Type 1 diabetes mellitus with diabetic peripheral angiopathy with gangrene (principal); I96 Gangrene, not elsewhere classified; N17.9 Acute kidney failure, unspecified; L97.528 Non-pressure chronic ulcer of other part of left foot with other specified severity; Z96.41 Presence of insulin pump (external) (internal); E10.621 Type 1 diabetes mellitus with foot ulcer; E10.42 Type 1 diabetes mellitus with diabetic polyneuropathy; E10.65 Type 1 diabetes mellitus with hyperglycemia; R03.0 Elevated blood-pressure reading, without diagnosis of hypertension; L03.032 Cellulitis of left toe
CPT/HCPCS: 36415; 73630; 80048; 80053; 82962; 84145; 85025; 85651; 86140; 96365; 96375; 97116; 97161; 97530; 97535; 99283; 99285; J0692; J1815

== ENCOUNTER 2023-11-07 14:10 | Day surgery (SDC) | payer OTHER, SELFPAY ==
[2023-10-04 17:42] VITALS: BMI 29.1
[2023-11-06 12:08] VITALS: BMI 28.7
[2023-11-07 14:44] VITALS: BP 145/85; PULSE 71; RESP 20; TEMP 36.2; O2SAT 100; BMI 29.5
--- NOTE | 2023-11-07 15:02 | SUR.PREOP ---
Notified Anesthesia provider Diann Mukherjee of blood sugar 323; orders received for Regular Insulin 5 units IV now. Patient asymptomatic.
[2023-11-07] MEDS: LACTATED RINGERS 1,000 ML 42 ML IV (15:09)
[2023-11-07] MEDS: ACETAMINOPHEN 325 MG TABLET 975 MG PO (15:09)
[2023-11-07] MEDS: INSULIN REGULAR 100 UNIT/ML 3 ML VIAL IV (15:15)
--- NOTE | 2023-11-07 15:19 | PM.HP.1 ---
History of Present Illness History of Present Illness Date Patient Seen: 11/07/23 Time Patient Seen: 15:20 Chief complaint: Left Toe Amputation Narrative: 53-year-old male presents for planned amputation of his left 3rd through 5th toes today. Please see my clinic note from yesterday for further details regarding his care. I have been following him for several weeks. [facility] Medical History Elevated blood pressure reading without diagnosis of hypertension MALVIN (acute kidney injury) Type 1 diabetes mellitus with polyneuropathy Cellulitis of left foot Social History household members: spouse Smoking Status: Never smoker alcohol intake: current Meds Home Medications and Allergies Home Medications Medication Instructions Recorded Confirmed Type insulin glargine 100 unit/mL (3 20 unit SUBCUT BEDTIME 11/06/23 11/07/23 History mL) subcutaneous pen (Lantus Solostar U-100 Insulin) Allergies Allergy/AdvReac Type Severity Reaction Status Date / Time meperidine [From Demerol] Allergy Verified 11/07/23 14:28 Review of Systems Review of Systems ROS: Yes All systems reviewed with the patient and are negative except as otherwise documented Exam Vital Signs (past 8 hours): - 11/07/23 14:44 Temperature 97.1 F L Pulse Rate 71 Respiratory Rate 20 Blood Pressure 145/85 H Pulse Oximetry 100 Oxygen Delivery Method Room Air Oxygen Delivery Method Room Air Narrative Exam Narrative: Left lower extremity examination demonstrates necrosis of the 3rd through 5th toes. There was blistering on the 2nd toe. He has a sensate throughout the distal aspect of all involved toes. He has a palpable DP pulse Const General: cooperative Orientation: alert and awake [facility] Head: normal to inspection Ears: hearing grossly normal bilaterally Eyes General: appearance normal, both eyes and all related structures Neck Neck: normal visual inspection Resp Effort & Inspection: normal respiratory effort and able to speak in complete sentences Cardio Pulses: other (peripheral pulses present) Skin Lesions: no lesions Rashes: no rashes Neuro General: patient alert, patient awake and moves all extremities Psych Appearance: grossly normal Assessment & Plan Assessment and plan (1) Gangrene associated with diabetes mellitus: Problem details: The patient is admitted for IV antibiotics and close monitoring and evaluation. Treat with IV vancomycin and cefepime. Orthopedics has recommended outpatient consultation but consider inpatient consultation pending clinical course. Status: Acute Plan Plan to proceed with amputation of the 3rd through 5th toes of the left foot through the MCP joints today. Patient will plan for discharge home postoperatively. He has a postop shoe at home which he will transition into. He is hyperglycemic at arrival today and this will be managed with IV insulin. I will follow up with him postoperatively in clinic. Time-Based Coding :: [TOTAL MINUTES] spent with patient and on the chart (including review of chart, obtaining history, exam, reviewing outside data, placing orders, documenting exam and treatment plan, and counseling patient) on [DATE].
[2023-11-07] MEDS: CEFAZOLIN 2 GM/100 ML PREMIX 100 ML IV (15:44)
--- NOTE | 2023-11-07 16:02 | SUR.OPER ---
Supine on padded OR bed, head on pillow, arms secured on padded arm boards at <90 degrees abduction, legs uncrossed, safety belt at thigh, tape over blanket over non-operative leg. Bump to left thigh.
[2023-11-07] MEDS: BUPIVACAINE 0.5% (PF) 30 ML VIAL INJ (16:06)
[2023-11-07 16:24] VITALS: BP 122/83; PULSE 97; RESP 14; TEMP 36.6; O2SAT 95
[2023-11-07 16:29] VITALS: BP 137/84; PULSE 97; RESP 12; O2SAT 93
[2023-11-07 16:34] VITALS: BP 158/91; PULSE 94; RESP 13; O2SAT 94
[2023-11-07 16:38] VITALS: BP 154/92; PULSE 92; RESP 13; TEMP 36.8; O2SAT 94
--- NOTE | 2023-11-07 16:45 | P.OP_ITS ---
Operative Date/Time/Diagnoses Date of procedure: 11/07/23 Pre-op diagnosis: Necrosis of 3rd 4th and 5th toes of the left foot Post-op diagnosis: same Procedure & Clinicians Procedure: Amputation of left 3rd 4th and 5th toes through the metacarpophalangeal joint Same procedure as scheduled: Yes Surgeon: Ryan Bo Click Yes if Unassisted: Yes Anesthesia Type: MAC +/- Operative Notes Estimated Blood Loss (mL): 100 Procedure in detail: This 53-year-old male patient presented to the emergency department with necrosis of his toes. I was on-call at the time and evaluated him in the emergency department. I discussed with him that he had early necrosis and I would recommend vascular evaluation to ensure there would be adequate blood flow prior to amputation. I also recommended abstaining from early amputation so as to allow for demarcation of the involved area. He developed a blister on the 2nd toe after that initial evaluation. It did not go onto develop full necrosis of the toe however. I therefore did not make any plans to amputate that toe. Vascular studies were obtained which were essentially normal. I did refer the patient to vascular surgery. They initially would not see the patient without pre-existing vascular studies. After these had been obtained they elected not to accept the referral because he had a normal PRANEETH. His toe necrosis appeared consistent with vascular disease and he is a poorly-controlled diabetic, as evidenced by his blood glucose of 300 on arrival at the hospital today. I discussed on multiple occasions with him the risks and benefits of the surgery. I discussed with him that abstaining from amputation would have a high likelihood of eventual infection and that his risk of further wound breakdown, infection, and need for further amputations were all quite high. He understood these risks and wished to proceed. He was met in the preoperative holding area the day of surgery and the operative site was marked. Informed consent was signed. He was brought back to the operating room and placed supine on the operating table. Sedation was utilized. The surgical area was prepped and draped in the usual sterile fashion. I began by using a towel clip to gain leverage on each of the 3 toes and cutting circumferentially around the base through the flexor tendons and the joint capsule of the MCP joint. I removed all 3 toes. There was no sign of purulence in any of the areas. I did note adequate blood flow to the wound beds of all 3 toes. There was also arterial bleeding in the plantar aspect of the foot in the areas where intact arterial supply had remained. With all 3 toes removed and the MCP heads exposed I then irrigated and closed the wounds. I closed using 2- 0 Vicryl and 2-0 nylon. I placed a soft dressing over the wound. The patient was awoken from anesthesia, transferred off the operating room table, and brought to the PACU without immediate apparent complication. Post-operative Plan for aftercare: 1. Nonweightbearing left lower extremity. Utilize a postop shoe 2. Follow up outpatient for a wound check in 2 weeks 3. We will prescribe empiric Bactrim for a week to limit the risk of infection given the high risk wound
== END 2023-11-07 17:30 | disposition home or self-care (01) ==
PROVIDERS: Referring Provider Orthopaedic Surgery Adult Reconstructive Orthopaedic Surgery; Visit Provider Orthopaedic Surgery Adult Reconstructive Orthopaedic Surgery
PROC: (CPT 28820; principal; 2023-11-07 16:15)
DX: E11.52 Type 2 diabetes mellitus with diabetic peripheral angiopathy with gangrene (principal)
CPT/HCPCS: 28820 ×3; J0690; J2250; J2405; J2704; J3010

== ENCOUNTER → 2024-02-27 18:19 | Outpatient (CLI) | payer OTHER, SELFPAY ==
[2023-10-04 17:42] VITALS: BMI 29.1
--- NOTE | 2024-02-27 18:21 | DI.MRI.S_ITS ---
PROCEDURE: MR FOOT LT WO/W CON INDICATIONS: acquired absence of other left toe TECHNIQUE: Noncontrast coronal T1 spin echo and STIR, sagittal T1 spin echo with fat saturation and STIR, axial T1 spin echo and T2 fast spin echo with fat saturation. After the administration of contrast, axial/sagittal/coronal T1 spin echo with fat saturation through the left foot. COMPARISON: None. FINDINGS: Image quality: Excellent. Bones: The status post amputation of the 3rd and 4th toe at the metatarsophalangeal joint. Status post amputation of the 5th toe at the distal metatarsal diaphysis. Diffuse marrow edema of the 5th metatarsal diaphysis with confluent T1 hypointensity at the surgical resection margin, concerning for osteomyelitis. Susceptibility artifact dorsal and medial to the 2nd proximal phalanx, nonspecific and may be postprocedural. Mild marrow edema of the 3rd and 4th metatarsal head, without confluent T1 hypointensity, reactive. Soft tissues: Moderate tenosynovitis about the master knot of Carl. Diffuse muscle edema, without fatty atrophy, nonspecific. Diffuse subcutaneous edema of the dorsal foot and dorsal to the 1st and 2nd toe. No drainable fluid collection. The Lisfranc ligament is intact. IMPRESSION: 1. Findings concerning for osteomyelitis at the resection margin of the 5th metatarsal . No drainable fluid collection. 2. Mild reactive marrow edema of the 3rd and 4th metatarsal head. Dictated by: Nidhi Finnegan M.D. on 03/01/2024 at 10:03 Approved by: Nidhi Finnegan M.D. on 03/01/2024 at 10:15
== END ==
PROVIDERS: Referring Provider Podiatrist; Visit Provider Podiatrist
DX: M65.872 Other synovitis and tenosynovitis, left ankle and foot (principal); R60.0 Localized edema; Z89.422 Acquired absence of other left toe(s)
CPT/HCPCS: 73720; A9579

== ENCOUNTER 2024-04-09 09:52 | Day surgery (SDC) | payer OTHER, SELFPAY ==
[2023-10-04 17:42] VITALS: BMI 29.1
[2024-03-30 14:53] VITALS: BMI 30.8
--- NOTE | 2024-04-09 | PATH_ITS ---
[facility] Accession Number: [id number] No. of containers..01 Tissue . 01 Material submitted: . bone - LEFT 5TH METATARSAL SHAFT . 01 Diagnosis: LEFT FIFTH METATARSAL SHAFT, DISARTICULATION: Bone with focal collections of neutrophils, in a background of reactive marrow changes, favor early or resolving acute osteomyelitis. Negative for malignancy. Surgical margins: Viable without evidence of acute osteomyelitis. MRV 04/12/2024 1431 Local . 01 Electronically signed: . Tuan Gray MD, Pathologist NPI- [id number] . 01 Gross description: . Received in formalin, labeled with two identifiers and left fifth metatarsal, is a roman fragment of bone with attached soft tissue, measuring 3.7 x 2.0 x 1.4 cm. The margin is inked blue. Sectioning reveals roman osseous tissue that is relatively difficult to section with a scalpel. Manufacturing Test Technician sections are submitted as follows: A1: Margin en face. A2: Cross section. Specimen decalcified. ([id number]) /FRR 04/10/2024 0953 Local . 01 Pathologist provided ICD-10: M86.172 . 01 CPT . 620707, [id number] Specimen Comment: A courtesy copy of this report has been sent to [facility] Pathology Performed at: [address] [address], [place], [place] [id number] MD Kin Lopes MD Phone: [phone]
[2024-04-09] MEDS: LACTATED RINGERS 1,000 ML 42 ML IV (10:00)
[2024-04-09 10:21] VITALS: BP 180/98; PULSE 80; RESP 16; TEMP 36.2; O2SAT 98; BMI 30.8
--- NOTE | 2024-04-09 11:44 | PM.PREOP ---
Pre-operative Note Interval Note History & Physical reviewed/Exam performed by Physician: Yes Changes to H&P: No
--- NOTE | 2024-04-09 11:44 | PM.OP.1 ---
Operative Date/Time/Diagnoses Date of procedure: 04/09/24 Time of procedure: 11:44 Pre-op diagnosis: Left fifth metatarsal suspect osteomyelitis and distal foot wound Post-op diagnosis: same Procedure & Clinicians Procedure: Left fifth metatarsal partial resection Left fourth metatarsal head wound tissue excision and primary closure Same procedure as scheduled: Yes Indications: 54 yo diabetic male with suspected osteomyelitis to the fifth metatarsal and lingering wound to the forefoot with h/o amputation toes 3,4,5. Conservative measures in treatment of the wound have failed to heal it and out of concern for lingering infection of the bone, surgical resection and biopsy is desired. We spoke of the risks, potential complications, alternatives, expected outcomes. Consent was reviewed and signed. Anesthesiologist reviewed and gave clearance for surgery to proceed. Surgeon: Lizeth Tolentino Click Yes if Unassisted: Yes Anesthesia Type: General Operative Notes Closure Type: primary Specimen(s): other (1. Culture swab L MT5 head area. 2. Culture swab L MT4 head wound. 3. Pathology: L MT5 head/distal shaft. 4. L MT5 base leading edge bone culture.) Estimated Blood Loss (mL): 40 Blood products transfused: none Tourniquet time (min): 19 Procedure in detail: The patient was brought to the operating room and placed on the operating table in the supine position. Tourniquet was placed about the left ankle. Well padded, appropriately aligned. After induction of general anesthesia the left foot and ankle were prepped and draped in the usual aseptic manner. The left ankle tourniquet was inflated. Next, an incision was made over the dorsal 5th metatarsal head. The incision was full thickness at this level, down to bone. Careful to identify and retract all vital neural and vascular structures. All bleeders were cauterized and ligated as necessary. The 5th metatarsal head was only partially present and had crushed and moved medially and impacted upon itself. There was about 2 and half to 3 cm of thickening of the bone going proximally. The bone proximally and actually was quite strong, no abscess is were seen in the soft tissues and none on the bone itself. There was no malodor. And no necrotic tissue was seen. A culture swab was placed into the distal 5th metatarsal head area. At the same time, the granulation tissue that was seen on the wound at the distal 4th metatarsal heads skin was reduced using a curette. The deep fascia here appeared to be intact showed no exudate, and the skin edges were friable. A culture swab was placed on this location as well. Next, the Ancef was delivered to the patient via IV. Returning to the 5th metatarsal incision, I had preoperatively measured the amount of bone that appeared appropriate to remove and this was measured from the remaining 5th metatarsal head going proximally and coincided with the what was seen in intraoperatively but also via x-ray and MRI. This amounted to approximately 3 cm of bone from the remaining 5th metatarsal going proximally. A saw was used to resect this proximal aspect at a slight angle. This distal aspect of the bone was then passed off to be sent to pathology for identification and evaluation for possible osteomyelitis. Next a portion of the bone from the leading edge of the remaining 5th metatarsal was removed as a slender full-thickness piece and sent for culture. Verified that no sharp edges were noted on the remaining 5th metatarsal bone still in place. The area was irrigated with copious amounts of normal sterile saline. Skin edges were revised. Next, returning to the 4th metatarsal distal skin ulceration, this was revised of further and debulked to allow for a potential for closure. The tourniquet was deflated and a prompt hyperemic response was seen to the foot. The area was irrigated with copious amounts of normal sterile saline. Subcutaneous closure to the 5th metatarsal incision was performed using 4-0 Vicryl. Closure to the skin was performed using nylon on both locations. A sterile lightly compressive dressing was placed on the foot. He had for gotten to bring his postoperative shoe with him today and so he was well-padded with his dressings. He was transferred to PACU with vital signs stable and vascular status intact to the foot. Complications: none Post-operative Condition: stable Disposition: PACU Plan for aftercare: Following a period of postoperative monitoring, the patient will be discharged to home on written and oral postoperative instructions. He is to keep the dressing dry and intact. No weight-bearing to left foot. Elevating the foot but no ice. DVT prevention techniques have been reviewed. Skin sutures will not be removed until there has been clear indication of healing across the areas. We await antibiotics I am unless they are needed once we see his postoperative course as well as culture results.
[2024-04-09] MEDS: BUPIVACAINE 0.5% (PF) 30 ML VIAL INJ (12:06)
[2024-04-09] MEDS: CEFAZOLIN 2 GM/100 ML PREMIX 100 ML IV (12:15)
[2024-04-09 13:06] VITALS: BP 184/80; PULSE 93; RESP 14; TEMP 36.6; O2SAT 94
[2024-04-09 13:11] VITALS: BP 164/90; PULSE 89; RESP 14; O2SAT 94
[2024-04-09 13:16] VITALS: BP 172/92; PULSE 88; RESP 14; O2SAT 94
[2024-04-09 13:24] VITALS: BP 168/94; PULSE 91; RESP 11; O2SAT 98
== END 2024-04-09 14:05 | disposition home or self-care (01) ==
PROVIDERS: Referring Provider Podiatrist; Visit Provider Podiatrist
PROC: (CPT 28810; principal; 2024-04-09 11:30)
DX: M86.172 Other acute osteomyelitis, left ankle and foot (principal); T81.31XA Disruption of external operation (surgical) wound, not elsewhere classified, initial encounter; I10 Essential (primary) hypertension; G47.30 Sleep apnea, unspecified; E03.9 Hypothyroidism, unspecified; Z79.4 Long term (current) use of insulin; E11.42 Type 2 diabetes mellitus with diabetic polyneuropathy; Z86.79 Personal history of other diseases of the circulatory system
CPT/HCPCS: 28810; 82962; 87070; 87075; 87077; 87147; 87186; 87205; J0690; J2250; J2704; J3010

== ENCOUNTER → 2024-07-26 11:29 | Outpatient (CLI) | payer OTHER, SELFPAY ==
[2023-10-04 17:42] VITALS: BMI 29.1
[2024-07-26 12:22] LABS: Appearance Urine UA CLEAR; Bilirubin Urine UA NEGATIVE (NEGATIVE); Color Urine UA YELLOW; Glucose Urine UA NEGATIVE (Negative); Ketones Urine UA NEGATIVE (NEGATIVE); Leukocyte Esterase Urine UA NEGATIVE (NEGATIVE); Nitrite Urine UA NEGATIVE (Negative); Occult Blood Urine UA TRACE-INTACT (Negative); Protein Urine UA 2+ (Negative); Specific Gravity Urine UA >=1.030 (1.000-1.035); Urobilinogen Urine UA 0.2 E.U./dL (0.2); pH Urine UA 5.5 (4.5-8.0)
[2024-07-26 12:37] LABS: Bacteria Urine Occasional (0-1); Mucus Urine 2+ (Negative); RBC Urine 1-5/HPF (0-5/HPF); Squamous Epithelial Cell Urine 1-5 /HPF (0-5/HPF); Urine Volume 10mL (spun); WBC Urine 0-1/HPF (0-5/HPF)
[2024-07-26 13:08] LABS: Alanine Aminotransferase 52 IU/L (<50); Albumin Globulin Ratio 1.5 (1.0-2.8); Alkaline Phosphatase 81 U/L (38-126); Aspartate Aminotransferase 48 IU/L (17-59); BUN Creatinine Ratio 17.2 (6-22); Bilirubin Total 0.6 mg/dL (0.2-1.3); Blood Urea Nitrogen 35 mg/dL (9-20); Calcium 8.9 mg/dL (8.4-10.2); Carbon Dioxide 25 mmol/L (22-32); Chloride 106 mmol/L (98-107); Estimated Glomerular Filt Rate 38 mL/min (>60); Globulin 2.6 g/dL (1.7-4.1); Glucose 87 mg/dL (70-100); HEMOLYSIS < 15 (0-50); Potassium 4.7 mmol/L (3.4-5.1); Sodium 140 mmol/L (137-145); Total Protein 6.6 g/dL (6.3-8.2)
== END ==
PROVIDERS: Referring Provider Chiropractor; Visit Provider Chiropractor
DX: E11.9 Type 2 diabetes mellitus without complications (principal)
CPT/HCPCS: 36415; 80053; 81003; 81015